=== PATIENT | male | born 1960 | race Two or more races ===

== ENCOUNTER 2022-07-02 07:48 | Day surgery (SDC) | payer OTHER ==
[~2022-07-02 07:48] MED LIST: LEVSIN0.125 MG PO; PROTONIX40 MG PO; ZANTAC300 MG PO; ZOFRAN4 MG PO
== END 2022-07-02 12:15 | disposition home or self-care (01) ==
LOC: AMB-ENDOS 07:48
PROVIDERS: ATTEND Surgery
DX: D12.5 Benign neoplasm of sigmoid colon (principal); D12.2 Benign neoplasm of ascending colon; K92.1 Melena; Z20.822 Contact with and (suspected) exposure to COVID-19; Z03.818 Encounter for observation for suspected exposure to other biological agents ruled out